=== PATIENT | male | born 1955 | race African-American/Black ===

== ENCOUNTER 2017-01-17 10:54 | Inpatient (IN) ==
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
[2017-01-17 12:06] LABS: Basophils % 0.1 % (0.0-0.8); Hematocrit 36.5 VOL% (42.0-52.0); Hemoglobin 10.9 GM/DL (14.0-18.0); Immature Granulocytes % 0.7 %; Immature Granulocytes Absolute 0.11 #; Lymphocytes # 1.3 10*3/uL (1.4-4.0); Lymphocytes % 8.6 % (21.2-54.2); Mean Corpuscular HGB Conc 29.9 GM/DL (32-36); Mean Corpuscular Hemoglobin 26 PG (27-34); Mean Corpuscular Volume 87.3 FL (87-102); Mean Platelet Volume 11.5 FL (9.6-12.0); Monocytes # 1.7 10*3/uL (0.11-0.8); Monocytes % 11.6 % (1.7-12.7); NRBC # 0.07 10*3/uL; Neutrophils # 11.6 10*3/uL (1.4-7.4); Platelet Count 387 T/CUMM (130-400); Red Blood Count 4.18 MC/CUMM (3.8-5.5); Red Cell Distribution Width 20.4 % (9.3-17.3); White Blood Count 14.7 T/CUMM (4-12)
--- NOTE | 2017-01-17 12:09 | XRay Report ---
XR chest 2V Indication: Shortness of breath Comparison: 04 June 2016 Findings: The heart and mediastinum are normal in size and configuration. The pulmonary vascularity is normal in caliber. There is increased left lung density and large effusion, not present on previous study. No other lung infiltrates, effusions, pneumothorax or other abnormality is demonstrated. Impression: Increased left lung density and effusion, likely underlying pneumonia. PROCEDURE INTERPRETED AT [facility] DEPARTMENT OF RADIOLOGY Final Report Signed by: Dr. Kevyn Lanza
[2017-01-17 12:48] LABS: Albumin 2.9 G/DL (3.4-5.0); Bilirubin,Total 0.6 MG/DL (0.2-1.0); Calcium 9.5 MG/DL (8.5-10.1); Osmolality,Calculated 292.3 MOS/KG (273-304); Total Protein 8.6 G/DL (6.4-8.3); Troponin I Only 0.041 NG/ML (0.00-0.045)
[2017-01-17 12:56] LABS: INR 1.1
[2017-01-17] MEDS ORDERED: ZALEPLON 5 MG CAPSULE PO PRN (14:49)
[2017-01-17] MEDS ORDERED: GLUCAGON 1 MG VIAL IM PRN (14:49)
[2017-01-17] MEDS ORDERED: DOCUSATE SODIUM 100 MG CAPSULE PO PRN (14:49)
[2017-01-17] MEDS ORDERED: DEXTROSE 50% 25 GM/50 ML VIAL IV PRN (14:49)
[2017-01-17] MEDS ORDERED: ACETAMINOPHEN 325 MG TABLET PO PRN (14:49)
[2017-01-17] MEDS ORDERED: ONDANSETRON 4 MG/2 ML VIAL IV PRN (14:49)
--- NOTE | 2017-01-17 15:08 | XRay Report ---
Exam: XR chest post procedure Date: 01/17/2017 at 2:15 PM Indication: Post thoracentesis Comparison: 01/13/2017 1143 a.m. Technical: Inspiration and expiration imaging obtained. Findings: Examination reveals complete opacification of the left upper chest that suggest the possibility of a mass. Atelectatic change present in the left base with residual left pleural effusion. Old right rib fractures present. The right heart border is intact the left heart border is obscured. Oxygen tubing is present. Impression: 1. Moderate residual left basilar effusion and atelectatic change with opacity in the left upper chest that appears represent possibly a mass in the left upper chest. 2. Old right rib fractures. CT scan of the chest is recommended for further evaluation. PROCEDURE INTERPRETED AT [facility] DEPARTMENT OF RADIOLOGY Final Report Signed by: Dr. Eleno Casarez
[2017-01-17 15:13] LABS: Lymphocytes,Pleural Fluid 89 %; Monocytes,Pleural Fluid 1 %; Neutrophils,Pleural Fluid 10 %
[2017-01-17 15:17] LABS: RBC,Pleural Fluid 1422 T/CUMM
--- NOTE | 2017-01-17 15:26 | EKG Report ---
Stationary ECG Study [facility] ER Test Date: 01/17/2017 10:58:51 AM Pat Name: JESUS MANUEL FOSTER Department: Room: 544 Gender: M [employer] Administrator: : [id number] Requested by: Steve Montenegro Order Number: [id number] Reading MD: CHAYO MEI Intervals [place] Rate: 107 P: 53 [place]: 104 QRS: 56 QRSD: 92 T: 124 QT: 342 QTc: 405 Interpretive Statements SINUS TACHYCARDIA WITH SHORT [place] INTERVAL POSSIBLE LEFT ATRIAL ENLARGEMENT POSSIBLE LEFT VENTRICULAR HYPERTROPHY Electronically Signed On 01-17-17 16:37:08 ELECTROPLATING SALES REPRESENTATIVE by CHAYO MEI [email or web address]
--- NOTE | 2017-01-17 15:58 | CT Report ---
Exam:CT chest w con Date:01/17/2017 3:04 PM Indication: Left pleural effusion pneumonia weight loss Comparison: Routine chest Technical: Images were obtained from the thoracic inlet through the lung bases with 80 cc of contrast. Axial sagittal and coronal imaging was available for review. Dose reduction was performed with decreasing kv and mA and automated exposure Total DLP: 148.4 mGy*cm Findings: The thyroid gland is mildly inhomogeneous. The trachea is slightly deviated to the right and esophagus is unremarkable. The examination reveals a large bulky mass in the lateral aortic carlos manuel chain measuring approximately 11.0 x 7 cm with extension into the aortopulmonic window where the mass measures up to 10 cm x 7.8 cm. Small nodes are present in the carinal region. The heart is demonstrated with enlargement and a pericardial effusion measuring up to 2.2 cm. ASVD is present in the aorta. The pulmonary outflow tract is intact the right pulmonary artery is unremarkable. The left pulmonary artery is encased in soft tissue density mass. The lungs reveal a large left pleural effusion and the mass density with underlying atelectatic change in the left chest. Mass lesion measures 37.7 cm extending to the left apex laterally with the mediastinal masses anteriorly and medially noted. Right lung is unremarkable. The bony structures are unremarkable. The adrenal glands are demonstrated with 3.8 x 2.7 x 2.0 cm mass in the right adrenal gland. The left adrenal gland is unremarkable.. The liver and spleen and stomach are unremarkable. The proximal kidneys appear intact. The gallbladder is demonstrated with small stone. The pancreas is unremarkable. Some low density present in the para-aortic region that suggest probable component of adenopathy in the para-aortic region. Impression: 1. Large pericardial effusion 2. Large residual pleural effusion postthoracentesis without pneumothorax 3. Large mass in the anterior mediastinum and left aortopulmonic window and left lung consistent with primary lung carcinoma. 4. Vascular calcinosis the aorta vessels coronary arteries and the mesenteric and renal arteries. 5. Metastatic disease in the right adrenal gland suspected measuring approximately 2.7 x 2 cm x 3.8 cm in height Critical test report called to Valentina Newby M.D. PROCEDURE INTERPRETED AT [facility] [place] DEPARTMENT OF RADIOLOGY Final Report Signed by: Dr. Eleno Casarez
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
--- NOTE | 2017-01-17 16:16 | XRay Report ---
Referring Physician: Steve Loza Exam: XR chest 1V Date: January 17, 2017 at 3:23 PM Reason: Pneumothorax Comparison: Chest postprocedure film January 17, 2017 at 1:47 PM, CT chest January 17, 2017 Findings: The heart is likely stable in size but is partially obscured. There is almost complete opacification of the left lung secondary to atelectasis, pleural fluid and a large mass at the left mediastinum/hilum. Superimposed pneumonia is not excluded. No pneumothorax is identified. The osseous structures appear stable. Multiple remote rib fractures are noted on the right. Impression: There has been no significant change. No pneumothorax is identified. PROCEDURE INTERPRETED AT [facility] DEPARTMENT OF RADIOLOGY Final Report Signed by: Dr. Kalli Magana
--- NOTE | 2017-01-17 16:34 | Post Interventional Procedure ---
Pre-op diagnosis: shortness of breath and large left pleural effusion Post-op diagnosis: same Procedure: u/s guided left thoracentesis Contrast: none Flouroscopy: none Radiologist: Liam Mckeon Anesthesia: local Specimens: other (specimen sent for any requested studies) Estimated blood loss: none Complications: none Condition: stable Description/Findings: Large left pleural effusion noted on chest ultrasound. The 6 Amharic safety centesis needle/catheter were advanced into the pleural fluid without difficulty using ultrasound guidance. A total of 1300 mL of serous straw- colored fluid was removed. Patient tolerated the procedure well and remained hemodynamically stable. Assessment and Plan - Time spent with patient Time spent with patient: Less than 30 minutes
--- NOTE | 2017-01-17 16:43 | Ultrasound Report ---
Exam: ULTRASOUND-GUIDED THORACENTESIS Clinical history: History of 20 pound weight loss shortness of breath, large right pleural effusion on radiography. Physician: Dr. Mckeon. Procedure: Informed consent was obtained prior to the procedure. A formal timeout was performed. Maximum sterile barrier technique was used. A partially loculated left-sided pleural effusion was identified with ultrasound. The left posterior chest was prepped and draped in sterile fashion. 1% lidocaine was used to anesthetize the skin and subcutaneous tissues. Under sonographic guidance, a 6 Guyanese safety centesis needle and catheter were advanced into the effusion using trocar technique. A captured sonographic image demonstrates positioning of the needle within the targeted pleural fluid. The needle was removed. Through the catheter, we obtained a total of 1300 cc of serous pleural fluid. The catheter was removed. A bandage was placed at the puncture site. The patient tolerated the procedure well. Chest radiograph is pending. Impression: Technically successful ultrasound guided left thoracentesis as detailed above. PROCEDURE INTERPRETED AT [facility] DEPARTMENT OF RADIOLOGY Final Report Signed by: Liam Mckeon
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
[2017-01-17] MEDS: LEVOFLOXACIN INJ 500 MG in PREMIX 1 EACH IV SCH (17:58)
[2017-01-17] MEDS: hydrALAZINE 25 MG TABLET PO SCH ×2 (17:59→20:38)
[2017-01-17] MEDS: SEVELAMER CARBONATE 800 MG TABLET PO SCH ×2 (17:59→20:38)
[2017-01-17] MEDS: CALCIUM ACETATE 667 MG CAPSULE PO SCH (17:59)
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
--- NOTE | 2017-01-17 20:32 | Ultrasound Report ---
Referring physician: Valentina Newby MD Exam: Bilateral lower extremity venous ultrasound Date: January 17, 2017 Comparison: Lower extremity venous ultrasound September 09, 2014 Reason: Leg pain, cancer of the lung, evaluate for DVT Technique: Duplex scan of the bilateral lower extremity veins was performed using B-Mode/grayscale imaging and Doppler spectral analysis, compression, color flow. Ultrasound images were captured and stored. Findings: There is no evidence of thrombus within the left or right common femoral veins, saphenous veins, superficial femoral veins or popliteal veins. Normal compression and augmentation are present throughout. Normal color flow and spectral analysis are observed. Impression: No evidence of deep venous thrombosis within either lower extremity. PROCEDURE INTERPRETED AT [facility], [place] DEPARTMENT OF RADIOLOGY Final Report Signed by: Dr. Kalli Magana
[2017-01-17] MEDS: PHENYTOIN ER 100 MG CAPSULE PO SCH (20:39)
[2017-01-17] MEDS: cloNIDine 0.1 MG TABLET PO SCH (20:39)
[2017-01-18 05:17] LABS: Basophils % 0.2 % (0.0-0.8); Eosinophils % 0.1 % (0.00-10.9); Hematocrit 31.2 VOL% (42.0-52.0); Hemoglobin 9.4 GM/DL (14.0-18.0); Immature Granulocytes % 0.7 %; Immature Granulocytes Absolute 0.12 #; Lymphocytes # 1.6 10*3/uL (1.4-4.0); Lymphocytes % 8.7 % (21.2-54.2); Mean Corpuscular HGB Conc 30.1 GM/DL (32-36); Mean Corpuscular Hemoglobin 26 PG (27-34); Mean Corpuscular Volume 86.2 FL (87-102); Mean Platelet Volume 12.1 FL (9.6-12.0); NRBC # 0.05 10*3/uL; Neutrophils # 14.1 10*3/uL (1.4-7.4); Neutrophils % 79.3 % (38.7-73.9); Platelet Count 281 T/CUMM (130-400); Red Blood Count 3.62 MC/CUMM (3.8-5.5); Red Cell Distribution Width 20.4 % (9.3-17.3); White Blood Count 17.7 T/CUMM (4-12)
[2017-01-18 05:44] LABS: Albumin 2.3 G/DL (3.4-5.0); Bilirubin,Total 0.5 MG/DL (0.2-1.0); Calcium 8.6 MG/DL (8.5-10.1); Osmolality,Calculated 290.7 MOS/KG (273-304); Total Protein 6.9 G/DL (6.4-8.3)
[2017-01-18] MEDS: MAGNESIUM CHLORIDE 64 MG TABLET PO SCH (08:51)
[2017-01-18] MEDS: CALCIUM ACETATE 667 MG CAPSULE PO SCH ×3 (08:51→17:50)
[2017-01-18] MEDS: SEVELAMER CARBONATE 800 MG TABLET PO SCH ×3 (08:51→17:50)
[2017-01-18] MEDS: ASPIRIN EC 81 MG TABLET PO SCH (08:52)
[2017-01-18] MEDS: cloNIDine 0.1 MG TABLET PO SCH ×2 (08:52→22:03)
[2017-01-18] MEDS: PHENYTOIN ER 100 MG CAPSULE PO SCH ×2 (08:52→22:00)
[2017-01-18] MEDS: hydrALAZINE 25 MG TABLET PO SCH ×3 (08:52→22:00)
[2017-01-18] MEDS: PANTOPRAZOLE 40 MG TABLET PO SCH (08:52)
[2017-01-18] MEDS: SIMVASTATIN 10 MG TABLET PO SCH (08:52)
[2017-01-18] MEDS ORDERED: amLODIPine 10 MG TABLET PO SCH (09:00)
--- NOTE | 2017-01-18 09:12 | Hospitalist Progress Note ---
Assessment and Plan (1) End stage renal disease on dialysis Status: Acute Assessment and plan: consult Nephrology for HD 01/18/17: he will have dialysis today Current Visit: Yes (2) Pleural effusion, left Status: Acute Assessment and plan: s/p thoracocentsis with still large residual fluid may need repeat removal and fluid sent to lab likely an exudate 01/18/17: He still has a large amount of fluid and no IR on this weekend. Current Visit: Yes (3) Mediastinal mass Status: Acute Assessment and plan: likely primary lung cancer with mets. Oncology consult Current Visit: Yes (4) Pericardial effusion Status: Acute Assessment and plan: cardiology has been consulted Current Visit: Yes (5) Hepatitis B Status: Chronic Current Visit: Yes Qualifiers: Viral hepatitis chronicity: chronic Hospitalist: Subjective Interval history: Pt states he did not rest well last night but denies any other issues. We were informed by his dialysis unit that he does have a history of Hepatitis B. Exam - Constitutional Vitals: Period Temp Pulse Resp BP Sys/Obando Pulse Ox Last 24 Hr 98 F-98.4 F 101-111 16-20 105-124/67-80 98-100 General appearance: cachectic - Head Head exam: Present: normocephalic, atraumatic - Eye Eye exam: Present: EOMI Pupils: Present: SHIVA - Respiratory Respiratory exam: Present: decreased breath sounds (LLL) - Cardiovascular Cardiovascular exam: Present: regular rate and rhythm - GI/Abdominal GI/Abdominal exam: Present: normal bowel sounds, soft - Extremities Exam Extremities exam: Present: full ROM - Neurological Exam Neurological exam: Present: alert, oriented X3, CN II-XII intact - Psychiatric Psychiatric exam: Present: normal affect, normal mood - Skin Skin exam: Present: warm, intact Results - Labs CBC & BMP: 01/18/17 04:50 01/18/17 04:50
--- NOTE | 2017-01-18 10:25 | Nephrology Progress Note ---
Nephrology - PN: Subj Interval history: Pt denies worsening SOB, Improved since thoracentesis. Aware of large left lung mass. Denies pain. Exam (PN)-Nephrology - Vital Signs Vital signs: Period Temp Pulse Resp BP Sys/Obando Pulse Ox Last 24 Hr 98 F-98.4 F 101-111 16-20 105-124/67-80 98-100 - General Appearance General appearance: well-developed, cachectic, chronically ill EENT: ATNC, PERRL, mucous membranes moist, hearing intact, vision intact Neck: no JVD, no thyromegaly Respiratory: no kyphosis, rales Cardiology: no murmurs, no rub, no edema Gastrointestinal: normoactive bowel sounds, no tenderness Integumentary: no rash, warm and dry Neurologic: no focal deficit, no asterixis, alert and oriented x3 Musculoskeletal: no deformities, no erythema - Lab 01/18/17 04:50 01/18/17 04:50 Most recent lab results Calcium 8.6 MG/DL (8.5-10.1) 01/18/17 04:50 Assessment and Plan (1) End stage renal disease on dialysis Problem details: Routine CHD today in his room due to HBV status. UF as tolerated by hemodynamics. Status: Acute Current Visit: Yes (2) Mediastinal mass Status: Acute Current Visit: Yes (3) Hepatitis B Status: Chronic Current Visit: Yes Qualifiers: Viral hepatitis chronicity: chronic
--- NOTE | 2017-01-18 11:18 | Pulmonology Progress Note ---
Pulmonary - PN: Subj Interval history: There is a 61-year-old black male. I saw him in pulmonary consultation on 2016. My impressions were. 1. Large left pleural effusion. Exudate. Probably related to #2. Cytologies are pending. 2. Large mass in the left upper lung and mediastinum. Thought to be lung cancer. Suspected adrenal gland metastasis 3. Pericardial effusion. Etiology undetermined. Consider malignancy. 2016. Echocardiogram and cardiology consult pending. 4. Chronic renal failure requiring dialysis. 5. See past history. 01/18/2017. Patient appears stable today. Echocardiogram pending cardiology consultation pending. Cytology pending. White blood cell count 17,773 6. Platelets 281,000. H&H 9.4/31.2. Electrolytes are normal. Creatinine 7.20. No positive cultures. Patient does not appear to be in distress. He is lying flat in bed without any apparent distress. Physical exam. Vital signs. See below General. No apparent distress lying nearly flat in bed. Chest. Mild large airway congestion. Decreased breath sounds on the left. I hear no stridor. Heart. Heart sounds are distant. I do not hear a rub Abdomen. Nondistended nontender. Neck. Symmetrical. No meningismus Lymphatics. No submandibular cervical supraclavicular adenopathy. Extremities no obvious evidence of deep venous thrombophlebitis. Note. Doppler venograms done 01/17/2017 showed no evidence of deep venous thrombophlebitis. The remainder the physical exam is negative Plan. 1. Check the remaining pleural fluid studies including cytology. 2. We will ask interventional radiology to try to remove additional fluid to help with the patient's breathing and to send for additional cytology 3. Cardiology consultation. #4 needs echocardiogram 5. Check serum amylase and lipase in light of elevated pleural fluid levels 6. Chest x-ray 01/19/2017 Exam (Progress Note) - Constitutional Vitals: Period Temp Pulse Resp BP Sys/Obando Pulse Ox Last 24 Hr 98 F-98.4 F 101-111 16-20 105-124/67-80 98-100 Results - Labs CBC & BMP: 01/18/17 04:50 01/18/17 04:50
--- NOTE | 2017-01-18 19:08 | ECHO Report ---
Eva Rodriguez 01/17/2017 Exam Date: 16:33 Referring Physician: Bette Obregon Technologist: SANFORD Age: 61 Ht (in): Wt (lb): MExam Location: [facility] Gender: Echo [id number]: Pericardial friction rub with effusIndications:ion, Left pleural effusion - s/p thoracentesis, End stage renal disease, Dyspnea, unspecified, Orthopnea, Essential (primary) hypertension, Mediastinal mass, IDDM BP: / HR: SinusRhythm: GoodTechnical Quality: IMPRESSIONS Low normal to mildly reduced LV systolic function with ejection fraction estimated at 40-50%. Grade 1/4 diastolic dysfunction. Moderate concentric left ventricular hypertrophy. Mild mitral and tricuspid regurgitation. Aortic sclerosis without stenosis. Moderate size pericardial effusion without evidence of A knot. A large left pleural effusion with consolidation is noted. MEASUREMENTS (Male / Female) Normal Values 2D ECHO LV Diastolic Diameter PLAX 3.9 cm 4.2 - 5.9 / 3.9 - 5.3 cm LV Systolic Diameter PLAX 3.3 cm LV Fractional Shortening PLAX 17.3 % IVS Diastolic Thickness 1.5 cm 0.6 - 1.0 / 0.6 - 0.9 cm LVPW Diastolic Thickness 1.5 cm 0.6 - 1.0 / 0.6 - 0.9 cm RV Internal Dim ED PLAX 2.3 cm Aortic Root Diameter 3.6 cm LA Systolic Diameter LX 3.9 cm 3.0 - 4.0 / 2.7 - 3.8 cm DOPPLER TR Peak Velocity 266.0 cm/s TR Peak Gradient 28.3 mmHg FINDINGS Left Ventricle Normal left ventricular cavity size. Moderate left ventricular hypertrophy. Left ventricular ejection fraction is estimated at 40-50 %. Right Ventricle The right ventricle is normal in size and function. Right Atrium The right atrium is normal in size. Left Atrium The left atrium is normal in size. Mitral Valve Mildly thickened mitral valve with mild mitral regurgitation. Aortic Valve Aortic valve sclerosis without stenosis or regurgitation. Tricuspid Valve Morphologically normal tricuspid valve. Mild tricuspid valve regurgitation. Tricuspid regurgitation velocities suggest a PAP of 38 mmHg. Pulmonic Valve Morphologically normal pulmonic valve without significant stenosis. There is no pulmonic regurgitation. Pericardium Circumferential moderate pericardial effusion without evidence of tamponade not. There is no transtricuspid or transmitral inflow respiratory variation, and there is no evidence of right-sided chamber collapse.. Left pleural effusion. Aorta Normal ascending aorta dimension. Lilly Dc MD (Electronically Signed) 18 January 2017 Final Date: 19:07
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
[2017-01-18] MEDS ORDERED: amLODIPine 5 MG TABLET PO SCH (21:39)
[2017-01-18] MEDS ORDERED: cloNIDine 0.1 MG TABLET PO PRN (21:39)
[2017-01-19 06:03] LABS: Basophils % 0.2 % (0.0-0.8); Eosinophils % 0.1 % (0.00-10.9); Hematocrit 29.7 VOL% (42.0-52.0); Immature Granulocytes % 0.9 %; Immature Granulocytes Absolute 0.15 #; Lymphocytes # 1.1 10*3/uL (1.4-4.0); Lymphocytes % 6.4 % (21.2-54.2); Mean Corpuscular HGB Conc 30.3 GM/DL (32-36); Mean Corpuscular Hemoglobin 26 PG (27-34); Mean Corpuscular Volume 85.6 FL (87-102); Mean Platelet Volume 11.4 FL (9.6-12.0); Monocytes # 1.7 10*3/uL (0.11-0.8); Monocytes % 9.8 % (1.7-12.7); NRBC # 0.05 10*3/uL; Neutrophils # 14.1 10*3/uL (1.4-7.4); Neutrophils % 82.6 % (38.7-73.9); Platelet Count 350 T/CUMM (130-400); Red Blood Count 3.47 MC/CUMM (3.8-5.5); Red Cell Distribution Width 19.7 % (9.3-17.3)
--- NOTE | 2017-01-19 08:45 | Hospitalist Progress Note ---
Assessment and Plan (1) End stage renal disease on dialysis Problem details: Routine CHD today in his room due to HBV status. UF as tolerated by hemodynamics. Status: Chronic Assessment and plan: consult Nephrology for HD 01/18/17: he will have dialysis today 01/19/17: He did well with dialysis on yesterday will resume his regular scheduled Current Visit: Yes (2) Pleural effusion, left Status: Acute Assessment and plan: s/p thoracocentsis with still large residual fluid may need repeat removal and fluid sent to lab likely an exudate 01/18/17: He still has a large amount of fluid and no IR on this weekend. 01/19/17: IR consult in the am Current Visit: Yes (3) Mediastinal mass Status: Acute Assessment and plan: likely primary lung cancer with mets. Oncology consult 01/19/17: cytology is still pending Current Visit: Yes (4) Pericardial effusion Status: Acute Assessment and plan: cardiology has been consulted 01/19/17: per cards just monitor as he isn't symptomatic Current Visit: Yes (5) Hepatitis B Status: Chronic Current Visit: Yes Qualifiers: Viral hepatitis chronicity: chronic Hospitalist: Subjective Interval history: 61 yo male who presented with Dyspnea and about a 20-30 lbs weight loss. He has both pericardial and pleural effusion and about 1300 cc of fluid removed from pleural on Friday. He has no complaints and he did tolerate dialysis on yesterday. Exam - Constitutional Vitals: Period Temp Pulse Resp BP Sys/Obando Pulse Ox Last 24 Hr 97.3 F-98.7 F 97-107 16-20 92-111/58-65 92-98 General appearance: cachectic - Head Head exam: Present: normocephalic, atraumatic - Eye Eye exam: Present: EOMI Pupils: Present: SHIVA - Respiratory Respiratory exam: Present: decreased breath sounds (left base) - Cardiovascular Cardiovascular exam: Present: regular rate and rhythm - GI/Abdominal GI/Abdominal exam: Present: normal bowel sounds, soft - Extremities Exam Extremities exam: Present: full ROM - Neurological Exam Neurological exam: Present: alert, oriented X3, CN II-XII intact - Psychiatric Psychiatric exam: Present: normal affect, normal mood - Skin Skin exam: Present: warm, intact Results - Labs CBC & BMP: 01/19/17 05:29 01/18/17 04:50 - Diagnostic Findings Procedure: Chest x-ray: image reviewed by me (trachea deviated to the right with large left pleural effusion)
--- NOTE | 2017-01-19 09:30 | XRay Report ---
Referring Physician: Eleno Lombardi Exam: XR chest 1V portable Date: January 19, 2017 at 7:07 AM Reason: Chest mass, pleural effusion Comparison: Chest one view portable and CT chest January 17, 2017 Findings: The heart is partially obscured but is likely stable in size. There is almost complete opacification of the left lung secondary to atelectasis, pleural fluid and a large mass at the left mediastinum/hilum. Superimposed pneumonia or additional neoplasm is not excluded. No pneumothorax is identified. The osseous structures appear stable. Impression: There has been no significant change. PROCEDURE INTERPRETED AT [facility] DEPARTMENT OF RADIOLOGY Final Report Signed by: Dr. Kalli Magana
[2017-01-19] MEDS: MAGNESIUM CHLORIDE 64 MG TABLET PO SCH (09:37)
[2017-01-19] MEDS: SEVELAMER CARBONATE 800 MG TABLET PO SCH ×3 (09:37→18:48)
[2017-01-19] MEDS: PHENYTOIN ER 100 MG CAPSULE PO SCH ×3 (09:38→21:52)
[2017-01-19] MEDS: PANTOPRAZOLE 40 MG TABLET PO SCH (09:38)
[2017-01-19] MEDS: CALCIUM ACETATE 667 MG CAPSULE PO SCH ×3 (09:38→18:48)
[2017-01-19] MEDS: SIMVASTATIN 10 MG TABLET PO SCH (09:38)
[2017-01-19] MEDS: ASPIRIN EC 81 MG TABLET PO SCH (11:23)
--- NOTE | 2017-01-19 13:31 | Nephrology Progress Note ---
Nephrology - PN: Subj Interval history: Pt denies SOB/pain. Tolerated CHD yesterday without complications. Exam (PN)-Nephrology - Vital Signs Vital signs: Period Temp Pulse Resp BP Sys/Obando Pulse Ox Last 24 Hr 97.3 F-98.7 F 97-107 18-20 92-111/58-65 92-98 - General Appearance General appearance: cachectic, chronically ill, frail EENT: ATNC, PERRL, mucous membranes dry, hearing intact, vision intact Neck: no JVD, no carotid bruit Respiratory: no kyphosis, rales Cardiology: no murmurs, no rub, no edema Gastrointestinal: normoactive bowel sounds, no tenderness Integumentary: no rash, warm and dry Neurologic: no focal deficit, no asterixis Musculoskeletal: no deformities, no erythema - Lab 01/19/17 05:29 01/18/17 04:50 Most recent lab results Calcium 8.6 MG/DL (8.5-10.1) 01/18/17 04:50 Assessment and Plan (1) End stage renal disease on dialysis Problem details: Routine CHD tomorrow in his room due to HBV status. UF as tolerated by hemodynamics. Status: Chronic Current Visit: Yes (2) Mediastinal mass Status: Acute Current Visit: Yes (3) Hepatitis B Status: Chronic Current Visit: Yes Qualifiers: Viral hepatitis chronicity: chronic
[2017-01-19] MEDS: hydrALAZINE 25 MG TABLET PO SCH ×2 (13:38→16:09)
--- NOTE | 2017-01-19 14:11 | Pulmonology Progress Note ---
Pulmonary - PN: Subj Interval history: There is a 61-year-old black male. I saw him in pulmonary consultation on 2016. My impressions were. 1. Large left pleural effusion. Exudate. Probably related to #2. Cytologies are pending. 2. Large mass in the left upper lung and mediastinum. Thought to be lung cancer. Suspected adrenal gland metastasis 3. Pericardial effusion. Etiology undetermined. Consider malignancy. 2016. Echocardiogram and cardiology consult pending. 4. Chronic renal failure requiring dialysis. 5. See past history. 01/18/2017. Patient appears stable today. Echocardiogram pending cardiology consultation pending. Cytology pending. White blood cell count 17,773 6. Platelets 281,000. H&H 9.4/31.2. Electrolytes are normal. Creatinine 7.20. No positive cultures. Patient does not appear to be in distress. He is lying flat in bed without any apparent distress. 01/19/2017. This patient still has some left sided pleural effusion and he has a huge mass-effect over the left upper lung. I have asked interventional radiologist for another thoracentesis to remove additional fluid and for additional cytology. I canceled that today. I cancel because of patient just lays in bed and is asleep in a hard to arouse. His says this is the way he is at home for the past few months. I am not sure how much workup this patient can take. Cytologies from the first thoracentesis are pending. White count is 17,000 with 83 segs. H&H is 9.0/29.7. Platelets 350,000. Glucose 201. Physical exam. Vital signs. See below General. No apparent distress lying curled up in bed. Hard to arouse Chest. Mild large airway congestion. Decreased breath sounds on the left. I hear no stridor. Heart. Heart sounds are distant. I do not hear a rub Abdomen. Nondistended nontender. Neck. Symmetrical. No meningismus Lymphatics. No submandibular cervical supraclavicular adenopathy. Extremities no obvious evidence of deep venous thrombophlebitis. Note. Doppler venograms done 01/17/2017 showed no evidence of deep venous thrombophlebitis. The remainder the physical exam is negative Plan. 1. Check the remaining pleural fluid studies including cytology. 2. We will ask interventional radiology to try to remove additional fluid to help with the patient's breathing and to send for additional cytology 3. Cardiology consultation. #4 needs echocardiogram 5. Check serum amylase and lipase in light of elevated pleural fluid levels 6. Chest x-ray 01/19/2017 7. 01/19/2017. See my note above. Note that this patient has a lipase of [id number]. Exam (Progress Note) - Constitutional Vitals: Period Temp Pulse Resp BP Sys/Obando Pulse Ox Last 24 Hr 97.3 F-98.7 F 97-107 18-20 92-111/58-65 92-98 Results - Labs CBC & BMP: 01/19/17 05:29 01/18/17 04:50
--- NOTE | 2017-01-19 16:31 | Cardiology Progress Note ---
Assessment and Plan (1) Pericardial effusion Status: Acute Assessment and plan: This could be secondary to malignancy and/or his end-stage renal disease. No tamponade physiology was observed on echo on Friday, however his blood pressures on the lower side. I'm going to stop his antihypertensive medications. We will reevaluate his effusion. Current Visit: Yes (2) Hypertension Status: Chronic Assessment and plan: At this point I'm going to stop his antihypertensive medications because of the effusion. Current Visit: Yes (3) Dyspnea Status: Acute Assessment and plan: This is multifactorial from his abnormal lung findings, pleural effusion and pericardial effusion. Current Visit: Yes (4) End stage renal disease on dialysis Problem details: Routine CHD tomorrow in his room due to HBV status. UF as tolerated by hemodynamics. Status: Chronic Current Visit: Yes (5) Pleural effusion, left Status: Acute Assessment and plan: This is being evaluated by pulmonary. He is status post thoracentesis with a large residual. Current Visit: Yes (6) Mediastinal mass Status: Acute Assessment and plan: Being evaluated by pulmonary. Current Visit: Yes (7) Hepatitis B Status: Chronic Current Visit: Yes Qualifiers: Viral hepatitis chronicity: chronic Cardiology - PN: Subj Interval history: Mr. Rodriguez is a 61 year old male with a history of end-stage renal disease on hemodialysis, hypertension, hyperlipidemia, diabetes mellitus. He was admitted to the hospital with shortness of breath, orthopnea. He was found to have a large pleural effusion, a moderate-sized pericardial effusion and an abnormal chest CT concerning for possible malignancy. Overall, he thinks that shortness of breath may be worsening today when compared to yesterday although he is unclear about this. His blood pressure is on the low side even prior to receiving any of his medications. There are multiple family members present, they have designated 1 particular aunt as one that would be knowledgeable about his medications. I'll try to clarify with the patient and his family member whether or not he was actually taking his medications at home prior to admission, but nobody seems to be able to verify this. He is not having chest pain. Exam (Progress Note) - Constitutional Vitals: Period Temp Pulse Resp BP Sys/Obando Pulse Ox Last 24 Hr 98.1 F-98.7 F 105-107 18-20 92-111/58-65 92-97 Exam: General appearance: Cachectic, no acute distress - Head Head exam: Present: Some temporal wasting, normocephalic, atraumatic. Absent: hematoma, laceration - Eye Eye exam: Present: EOMI. Absent: conjunctival injection, nystagmus, periorbital swelling, scleral icterus, laceration to eyelids Pupils: Absent: constricted, dilated, fixed, irregular, unequal - ENT ENT exam: Present: normal exam, normal external ear exam - Neck Neck exam: Present: normal inspection. Absent: lymphadenopathy, meningismus, tenderness, thyromegaly - Respiratory Respiratory exam: Present: Decreased breath sounds in the bilateral bases with mild crackles above the decreased breath sounds. Absent: accessory muscle use, chest wall tenderness - Cardiovascular Cardiovascular exam: Present: Tachycardic rate and regular rhythm, friction rub is auscultated on both sides of the chest. - GI/Abdominal GI/Abdominal exam: Present: normal bowel sounds, soft. Absent: distended, firm , guarding, hernia, mass, tenderness, rebound. - Extremities Exam Extremities exam: Present: Decreased pulses in the bilateral lower extremities, dialysis access and left upper extremity. Absent: calf tenderness, edema - Back Exam Back exam: Present: normal inspection. Absent: muscle spasm, vertebral tenderness - Neurological Exam Neurological exam: Present: alert, oriented X3, grossly intact without resting or intention tremor - Psychiatric Psychiatric exam: Present: Depressed affect and mood, somewhat despondent - Skin Skin exam: Present: normal color, warm, dry, intact. Absent: cyanosis, diaphoretic, rash, urticaria Result/EKG - Labs CBC & BMP: 01/19/17 05:29 01/18/17 04:50 Lab Results: I have reviewed the past 24 hour labs Labs: Laboratory Results - last 24 hr 01/18/17 01/18/17 01/19/17 15:37 19:17 05:29 WBC 17.0 H RBC 3.47 L Hgb 9.0 L Hct 29.7 L MCV 85.6 L MCH 26 L MCHC 30.3 L RDW 19.7 H Plt Count 350 D MPV 11.4 Neut % (Auto) 82.6 H Lymph % (Auto) 6.4 L Banner % (Auto) 9.8 Eos % (Auto) 0.1 Baso % (Auto) 0.2 Neut # (Auto) 14.1 H Lymph # (Auto) 1.1 L Banner # (Auto) 1.7 H Eos # (Auto) 0.0 Baso # (Auto) 0.0 Immature Gran % 0.9 Nucleated RBC % 0.3 Immature Gran # 0.15 Nucleated RBCs # 0.05 POC Glucose 219 H 214 H 01/19/17 01/19/17 06:32 12:19 WBC RBC Hgb Hct MCV MCH MCHC RDW Plt Count MPV Neut % (Auto) Lymph % (Auto) [place]anner % (Auto) Eos % (Auto) Baso % (Auto) Neut # (Auto) Lymph # (Auto) Banner # (Auto) Eos # (Auto) Baso # (Auto) Immature Gran % Nucleated RBC % Immature Gran # Nucleated RBCs # POC Glucose 216 H 201 H
[2017-01-19] MEDS: LEVOFLOXACIN INJ 500 MG in PREMIX 1 EACH IV SCH (18:49)
[2017-01-20 06:20] LABS: Basophils % 0.1 % (0.0-0.8); Hematocrit 31.3 VOL% (42.0-52.0); Hemoglobin 9.5 GM/DL (14.0-18.0); Immature Granulocytes % 2.4 %; Immature Granulocytes Absolute 0.64 #; Lymphocytes # 1.1 10*3/uL (1.4-4.0); Lymphocytes % 4.1 % (21.2-54.2); Mean Corpuscular HGB Conc 30.4 GM/DL (32-36); Mean Corpuscular Hemoglobin 26 PG (27-34); Mean Corpuscular Volume 85.3 FL (87-102); Mean Platelet Volume 10.8 FL (9.6-12.0); Monocytes % 7.4 % (1.7-12.7); NRBC # 0.07 10*3/uL; Neutrophils # 22.8 10*3/uL (1.4-7.4); Platelet Count 371 T/CUMM (130-400); Red Blood Count 3.67 MC/CUMM (3.8-5.5); Red Cell Distribution Width 19.9 % (9.3-17.3); White Blood Count 26.5 T/CUMM (4-12)
[2017-01-20 06:49] LABS: Lymphocytes 3 % (20-55); Segmented Neutrophils 86 % (50-85); Total Cells Counted 100
[2017-01-20 06:50] LABS: Burr Cells 1+; Macrocytosis 1+; Platelet Estimate Adequate; Polychromasia Slight; Target Cells Slight
[2017-01-20 06:51] LABS: Calcium 9.6 MG/DL (8.5-10.1)
[2017-01-20 06:52] LABS: Magnesium 3.1 MG/DL (1.8-2.4); Osmolality,Calculated 290.7 MOS/KG (273-304); Potassium 3.9 MMOL/L (3.5-5.1)
--- NOTE | 2017-01-20 08:07 | Cardiology Progress Note ---
Assessment and Plan - Time spent with patient Time spent with patient: Less than 30 minutes (1) End stage renal disease on dialysis Status: Chronic Current Visit: Yes (2) Pericardial effusion Status: Acute Assessment and plan: Repeat echo today. Current Visit: Yes (3) Hepatitis B Status: Chronic Current Visit: Yes Qualifiers: Viral hepatitis chronicity: chronic (4) Hypertension Status: Chronic Current Visit: Yes Cardiology - PN: Subj Interval history: Mr. Rodriguez is a very pleasant 58-year-old gentleman with extensive weight loss bilateral pleural effusions abnormal imaging of the chest and pericardial effusion that is moderate. I reviewed his transthoracic echocardiogram. He is also lost his voice. He quit smoking upon admission to the hospital. Cardiology is following first pericardial effusion. Cytology on his exudative pleural effusion is pending certainly seems to be of malignancy. Because of his persistent mild tachycardia repeat transthoracic echo is pending. His last effusion was moderate and had no echocardiographic finding suggesting of impending tamponade. Exam (Progress Note) - Constitutional Vitals: Period Temp Pulse Resp BP Sys/Obando Pulse Ox Last 24 Hr 98.0 F-100.0 F 99-128 14-20 103-124/62-75 97-100 General appearance: under weight (Cachectic appearing) - Respiratory Respiratory exam: Present: other (Markedly diminished breath sounds in both bases with dullness to percussion) - Cardiovascular Cardiovascular exam: Present: regular rate and rhythm (Rates about 90) - GI/Abdominal GI/Abdominal exam: Present: normal bowel sounds Result/EKG - Labs CBC & BMP: 01/20/17 06:04 01/20/17 06:04 Labs: Laboratory Results - last 24 hr 01/19/17 01/19/17 01/19/17 12:19 16:17 21:39 WBC RBC Hgb Hct MCV MCH MCHC RDW Plt Count MPV Neut % (Auto) Lymph % (Auto) Summers % (Auto) Eos % (Auto) Baso % (Auto) Neut # (Auto) Lymph # (Auto) Summers # (Auto) Eos # (Auto) Baso # (Auto) Total Counted Immature Gran % Nucleated RBC % Immature Gran # Segmented Neutrophils Lymphocytes Monocytes Nucleated RBCs # Platelet Estimate Polychromasia Macrocytosis Target Cells [place] Cells Sodium Potassium Chloride Carbon Dioxide Anion Gap BUN Creatinine GFR Calculation BUN/Creatinine Ratio Glucose POC Glucose 201 H 198 H 150 H Calculated Osmolality Calcium Magnesium 01/20/17 01/20/17 06:04 06:04 WBC 26.5 H D RBC 3.67 L Hgb 9.5 L Hct 31.3 L MCV 85.3 L MCH 26 L MCHC 30.4 L RDW 19.9 H Plt Count 371 MPV 10.8 Neut % (Auto) 86.0 H Lymph % (Auto) 4.1 L Summers % (Auto) 7.4 Eos % (Auto) 0.0 Baso % (Auto) 0.1 Neut # (Auto) 22.8 H Lymph # (Auto) 1.1 L Summers # (Auto) 2.0 H Eos # (Auto) 0.0 Baso # (Auto) 0.0 Total Counted 100 Immature Gran % 2.4 Nucleated RBC % 0.3 Immature Gran # 0.64 Segmented Neutrophils 86 H Lymphocytes 3 L Monocytes 11 Nucleated RBCs # 0.07 Platelet Estimate Adequate Polychromasia Slight Macrocytosis 1+ Target Cells Slight [place] Cells 1+ Sodium 138 Potassium 3.9 Chloride 98 Carbon Dioxide 26 Anion Gap 17.9 H BUN 49 H Creatinine 7.90 H GFR Calculation 7 BUN/Creatinine Ratio 6.00 Glucose 145 H POC Glucose Calculated Osmolality 290.7 Calcium 9.6 Magnesium 3.1 H
[2017-01-20] MEDS: SEVELAMER CARBONATE 800 MG TABLET PO SCH ×3 (09:04→18:29)
[2017-01-20] MEDS: SIMVASTATIN 10 MG TABLET PO SCH (09:04)
[2017-01-20] MEDS: PANTOPRAZOLE 40 MG TABLET PO SCH (09:04)
[2017-01-20] MEDS: CALCIUM ACETATE 667 MG CAPSULE PO SCH ×3 (09:04→18:29)
[2017-01-20] MEDS: ASPIRIN EC 81 MG TABLET PO SCH (09:04)
[2017-01-20] MEDS: MAGNESIUM CHLORIDE 64 MG TABLET PO SCH (09:04)
[2017-01-20] MEDS: PHENYTOIN ER 100 MG CAPSULE PO SCH ×2 (09:05→20:01)
--- NOTE | 2017-01-20 10:44 | Hospitalist Progress Note ---
Assessment and Plan (1) Dyspnea Status: Acute Assessment and plan: Related to pleural effusion and mediastinum mass. Current Visit: Yes Qualifiers: Dyspnea type: shortness of breath Qualified Code(s): R06.02 - Shortness of breath (2) End stage renal disease on dialysis Problem details: Routine CHD tomorrow in his room due to HBV status. UF as tolerated by hemodynamics. Status: Chronic Current Visit: Yes (3) Pleural effusion, left Status: Acute Assessment and plan: Cytology pending. Likely malignant. Current Visit: Yes (4) Mediastinal mass Status: Acute Current Visit: Yes (5) Pericardial effusion Status: Acute Assessment and plan: Without tamponade Current Visit: Yes Hospitalist: Subjective Interval history: 61-year-old -Burm[place] male with end-stage renal disease on dialysis admitted with lung mass and pleural effusions with pericardial effusion without tamponade. He has undergone thoracentesis and fluid cytology is pending. This is thought to be a malignancy related effusion related to his lung mass. The patient is quite debilitated and frail. He is in no distress this morning. He is laying flat in bed and appears comfortable. Long-term plan for this patient is questionable. I think he would benefit most from hospice and palliative care given his degree of debility and other chronic comorbidities including end-stage renal disease. Exam - Constitutional Vitals: Period Temp Pulse Resp BP Sys/Obando Pulse Ox Last 24 Hr 97.6 F-100.0 F 99-128 14-20 103-124/56-75 97-100 General appearance: no acute distress, under weight, cachectic - Head Head exam: Present: normal inspection - Eye Eye exam: Present: EOMI Pupils: Present: SHIVA - Respiratory Respiratory exam: Present: decreased breath sounds - Cardiovascular Cardiovascular exam: Present: tachycardia - GI/Abdominal GI/Abdominal exam: Present: normal bowel sounds, soft - Extremities Exam Extremities exam: Absent: edema - Neurological Exam Neurological exam: Present: alert, oriented X3 - Psychiatric Psychiatric exam: Present: flat affect - Skin Skin exam: Present: normal color, warm, dry Results - Labs CBC & BMP: 01/20/17 06:04 01/20/17 06:04 Lab Results: I have reviewed the past 24 hour labs
--- NOTE | 2017-01-20 11:05 | Pulmonology Progress Note ---
Pulmonary - PN: Subj Interval history: Brian Whittaker, ANP-BC, GNP-BC, acting as scribe for Dr. Eleno Lombardi Mr. Rodriguez was seen today along with Mouna Atkinson RN, and a 14 year old male family member. There is a 61-year-old black male. He was first seen in pulmonary consultation on 01/17/2017. At that time, our impressions were: 1. Large left pleural effusion. Exudate. Probably related to #2. Cytologies are pending. 2. Large mass in the left upper lung and mediastinum. Thought to be lung cancer. Suspected adrenal gland metastasis 3. Pericardial effusion. Etiology undetermined. Consider malignancy. 2016. Echocardiogram and cardiology consult pending. 4. Chronic renal failure requiring dialysis. 5. See past history. 01/18/2017. Patient appears stable today. Echocardiogram pending cardiology consultation pending. Cytology pending. White blood cell count 17,773 6. Platelets 281,000. H&H 9.4/31.2. Electrolytes are normal. Creatinine 7.20. No positive cultures. Patient does not appear to be in distress. He is lying flat in bed without any apparent distress. 01/19/2017. This patient still has some left sided pleural effusion and he has a huge mass-effect over the left upper lung. I have asked interventional radiologist for another thoracentesis to remove additional fluid and for additional cytology. I canceled that today. I cancel because of patient just lays in bed and is asleep in a hard to arouse. His says this is the way he is at home for the past few months. I am not sure how much workup this patient can take. Cytologies from the first thoracentesis are pending. White count is 17,000 with 83 segs. H&H is 9.0/29.7. Platelets 350,000. Glucose 201. 01/20/17. Patient's pleural fluid cytology is still pending. He is laying flat in bed and appears comfortable. His breathing is stable. The chest x-ray has been done today, so one has been ordered. Pleural fluid from thoracentesis has grown no organisms. White count has risen to 26,500 and at midnight he had a temperature 100.0. Will obtain blood cultures 3 sets 30 minutes apart; sputum for Gram stain, culture, and sensitivity; and start Cleocin 300 mg IV every 8 hours. Medications have been reviewed. Labs been reviewed. White count is 26,500 with 86.0% segs, 4.1% lymphs, and 7.4 % monos; H&H 9.5/31.3 with decreased indices and increased red blood cell distribution width; platelet count 371,000; creatinine has risen to 7.90, BUN 49 , electrolytes are normal with the exception of an elevated magnesium of 3.1 Exam (Progress Note) - Constitutional Vitals: Period Temp Pulse Resp BP Sys/Obando Pulse Ox Last 24 Hr 97.6 F-100.0 F 99-128 14-20 103-124/56-75 97-100 Exam: Chest with mild large airway congestion and decreased breath sounds on the left Heart sounds are distant Abdomen is nontender and nondistended Extremities with nothing to suggest acute deep venous thrombophlebitis Neurologic/psychiatric the patient is awake alert Plan: Follow-up the pleural fluid cytology when available. Continue present treatment. Will obtain another CXR today since one was not done. He is being followed by cardiology and nephrology. Results - Labs CBC & BMP: 01/20/17 06:04 01/20/17 06:04
--- NOTE | 2017-01-20 11:58 | XRay Report ---
Portable chest Date: 01/20/2016 Clinical history: Shortness of breath, lung mass Comparison: 01/19/2017 Technique: Portable AP sitting chest Findings: Stable cardiomegaly. Progressive pleural and parenchymal findings in the left hemithorax with shift of the mediastinum to the right. No significant change in the appearance of the right lung. No acute osseous findings. Impression: Only limited pneumatization of the left lung with progressive findings in the left hemithorax. Patient has known large left chest mass with enlarging pleural effusion and shift of the mediastinum to the right. PROCEDURE INTERPRETED AT [facility] DEPARTMENT OF RADIOLOGY Final Report Signed by: Dr. Twila Salinas
[2017-01-20] MEDS: CLINDAMYCIN INJ 300 MG in PREMIX 1 EACH IV SCH ×2 (12:01→20:02)
--- NOTE | 2017-01-20 17:22 | ECHO Report ---
Eva Rodriguez Exam Date: 01/20/2017 09:03 Referring Physician: Technologist: Foster KRUSE Age: 61 Ht (in): Wt (lb): Gender: M Exam Location: [facility] Echo Indications: re-eval pericardial effusion BP: / HR: Rhythm: Sinus Technical Quality: limited IMPRESSIONS There is a large to moderate pericardial effusion with significant amount of fibrinous stranding within the pericardium. It is located circumferentially around the ventricular myocardium. The effusion is slightly larger today compared to previously. There is no tricuspid or mitral inflow examination of this effusion. There is only limited 2D imaging. There is no collapse of the right atrium or ventricle. The pericardial effusion measures 2.35 cm at its largest point. MEASUREMENTS (Male / Female) Normal Values FINDINGS Left Ventricle Right Ventricle Right Atrium Left Atrium Mitral Valve Aortic Valve Tricuspid Valve Pulmonic Valve Pericardium Aorta Eda Flynn (Electronically Signed) Final Date: 20 January 2017 17:21
--- NOTE | 2017-01-20 21:02 | Nephrology Progress Note ---
Nephrology - PN: Subj Interval history: He continues to be weak. He is easily arousable and is responsive. However he has having difficulty talking today. He denies shortness of breath or pain. Exam (PN)-Nephrology - Vital Signs Vital signs: Period Temp Pulse Resp BP Sys/Obando Pulse Ox Last 24 Hr 97.4 F-100.0 F 99-128 14-19 106-123/56-72 97-100 Exam: Gen.: Alert and oriented x3. ENT: Pupils equal round reactive to light. EOMs intact. Mucous membranes moist. Neck: Supple. No JVD or bruit. Cardiovascular: Regular rate and rhythm. No rub Lungs: Clear on the right. Dullness left base Abdomen: Soft. Nontender. Positive bowel sounds. No organomegaly Extremities: No edema - Lab 01/20/17 06:04 01/20/17 06:04 Most recent lab results Calcium 9.6 MG/DL (8.5-10.1) 01/20/17 06:04 Magnesium 3.1 MG/DL (1.8-2.4) H 01/20/17 06:04 Assessment and Plan (1) End stage renal disease on dialysis Status: Chronic Assessment and plan: 61-year-old man admitted with: * Left pleural effusion. Status post thoracentesis. He is symptomatically improved. * Mediastinal mass. Probable lung cancer. I have discussed this with him in detail. He is interested in speaking to oncology to discuss options. * ESRD. Dialysis tomorrow. We will need to monitor for hypotension, given his pericardial effusion * Diabetes mellitus * Cerebrovascular disease * Seizure disorder Current Visit: Yes (2) Pericardial friction rub Status: Acute Current Visit: Yes (3) Pleural effusion, left Status: Acute Current Visit: Yes (4) Mediastinal mass Status: Acute Current Visit: Yes
[2017-01-21] MEDS ORDERED: diphenhydrAMINE CAP 25 MG CAPSULE PO PRN (00:03)
[2017-01-21] MEDS ORDERED: diphenhydrAMINE 25 MG/10 ML UDCUP PO PRN (00:06)
[2017-01-21] MEDS: CLINDAMYCIN INJ 300 MG in PREMIX 1 EACH IV SCH ×3 (02:59→18:30)
[2017-01-21] MEDS: SEVELAMER CARBONATE 800 MG TABLET PO SCH ×3 (08:13→17:24)
[2017-01-21] MEDS: PANTOPRAZOLE 40 MG TABLET PO SCH (08:13)
[2017-01-21] MEDS: ASPIRIN EC 81 MG TABLET PO SCH (08:13)
[2017-01-21] MEDS: CALCIUM ACETATE 667 MG CAPSULE PO SCH ×3 (08:13→17:24)
[2017-01-21] MEDS: SIMVASTATIN 10 MG TABLET PO SCH (08:14)
[2017-01-21] MEDS: MAGNESIUM CHLORIDE 64 MG TABLET PO SCH (08:14)
[2017-01-21] MEDS: PHENYTOIN ER 100 MG CAPSULE PO SCH ×2 (08:14→20:02)
--- NOTE | 2017-01-21 09:52 | Cardiology Progress Note ---
ICira April RN, am scribing for, and in the presence of, Eda Flynn DO 09 :50. Assessment and Plan (1) Pericardial effusion Status: Chronic Assessment and plan: This appears to be a chronic process that has worsened certainly related to dialysis and his mediastinal/left chest mass. Await cytology. At this point I do not think it is in the patient's best interest to proceed with pericardiocentesis Current Visit: Yes (2) End stage renal disease on dialysis Status: Chronic Current Visit: Yes (3) Hepatitis B Status: Chronic Current Visit: Yes Qualifiers: Viral hepatitis chronicity: chronic (4) Hypertension Status: Chronic Current Visit: Yes (5) Chest mass Status: Acute Assessment and plan: Cytology is pending. This appears to be advanced stage malignancy and prognosis is very poor. No formal cytologic diagnosis has been given. Current Visit: Yes Cardiology - PN: Subj Interval history: Mr. Rodriguez is seen resting in bed in no acute distress. He tells me he didn' t have a good night, but can't tell me why. He denies chest pain or palpitations and says his breathing is OK. Oxygen in use via NBP. ECHO done yesterday showed large to moderate pericardial effusion that was slightly larger yesterday than on previous ECHO. According to vital sign records, he has a persistent low level tachycardia. Pressures were stable. He tells me he is scheduled to dialyze today. I discussed with Mr. Rodriguez today about his poor prognosis. He was on dialysis and somewhat somnolent. His pericardial effusion looks slightly worse yesterday by transthoracic echo. CT scan of course looks like a large left chest mass enters into the mediastinum. The patient's parent pulses paradoxus was measured today and was less than 10 mmHg it looks like it was about 5mmHg. His pressure is running low on dialysis with systolic between 85 by 90 mmHg. He has persistent tachycardia at about 100-105. Although a therapeutic pericardiocentesis could be considered I think in light of his extremely poor prognosis from this chest mass and his profound cachexia I do not think it is advisable. We are still waiting cytology to better define this mass that appears to be a malignancy. Exam (Progress Note) - Constitutional Vitals: Period Temp Pulse Resp BP Sys/Obando Pulse Ox Last 24 Hr 97.4 F-98.7 F 104-112 16-18 102-124/45-72 94-100 General appearance: no acute distress, under weight, other (Cachectic with obvious malnutrition) - Head Head exam: Absent: abrasion, hematoma - Eye Eye exam: Absent: periorbital swelling, laceration to eyelids - Neck Neck exam: Absent: tenderness - Respiratory Respiratory exam: Present: decreased breath sounds, other (oxygen via NBP). Absent: accessory muscle use, chest wall tenderness - Cardiovascular Cardiovascular exam: Present: regular rate and rhythm, tachycardia, other ( Tones are nicely audible there is no rub) - GI/Abdominal GI/Abdominal exam: Present: normal bowel sounds, soft. Absent: distended, tenderness - Extremities Exam Extremities exam: Absent: calf tenderness, edema - Neurological Exam Neurological exam: Present: alert, oriented X3 - Skin Skin exam: Present: warm, dry Result/EKG - Labs CBC & BMP: 01/20/17 06:04 01/20/17 06:04 Labs: Laboratory Results - last 24 hr 01/20/17 01/20/17 01/20/17 07:19 10:57 16:18 POC Glucose 155 H 184 H 204 H 01/20/17 19:57 POC Glucose 152 H I, Eda Flynn, , personally performed the services described in this documentation, ascribed by Rama Denis RN in my presence, and it is both accurate and complete [id number] .
--- NOTE | 2017-01-21 11:10 | Pathology Report from [facility] ---
ACCESSION # : [id number] PATIENT NAME : Eva Rodriguez ORDERING DR : Liam Mckeon MD CLINICAL HX: Left Pleural Effusion, shortness of breath. POST-OP DX: Same SPECIMEN INFO: Fluid,Pleural,Left - 1300 ml's straw colored, cloudy. CLASS: I CLASS COMMENTS: Few benign mesothelial cells, inflammation, proteinaceous material.CELL BLOCK: Same CLASS LEGEND: CLASS 0 Material inadequate for diagnosis because of (see comment) CLASS I Absence of atypical or abnormal cells CLASS II Atypical Cytology but no evidence of malignancy CLASS III Cytology suggestive of but not conclusive for malignancy CLASS IV Cytology strongly suggestive of malignancy CLASS V Cytology conclusive for malignancy SERVICE DATE: 01/20/2017 REPORT DATE: 01/21/2017 PATHOLOGIST: Svitlana Balderas III, M.D. [facility]TD[facility]
--- NOTE | 2017-01-21 13:45 | Pulmonology Progress Note ---
Pulmonary - PN: Subj Interval history: Brian Whittaker, ANP-BC, GNP-BC, acting as scribe for Dr. Eleno Lombardi Mr. Rodriguez was seen today along with Mika Lewis RN, and a dialysis nurse. There is a 61-year-old black male. He was first seen in pulmonary consultation on 01/17/2017. At that time, our impressions were: 1. Large left pleural effusion. Exudate. Probably related to #2. Cytologies are pending. 2. Large mass in the left upper lung and mediastinum. Thought to be lung cancer. Suspected adrenal gland metastasis 3. Pericardial effusion. Etiology undetermined. Consider malignancy. 2016. Echocardiogram and cardiology consult pending. 4. Chronic renal failure requiring dialysis. 5. See past history. 01/18/2017. Patient appears stable today. Echocardiogram pending cardiology consultation pending. Cytology pending. White blood cell count 17,773 6. Platelets 281,000. H&H 9.4/31.2. Electrolytes are normal. Creatinine 7.20. No positive cultures. Patient does not appear to be in distress. He is lying flat in bed without any apparent distress. 01/19/2017. This patient still has some left sided pleural effusion and he has a huge mass-effect over the left upper lung. I have asked interventional radiologist for another thoracentesis to remove additional fluid and for additional cytology. I canceled that today. I cancel because of patient just lays in bed and is asleep in a hard to arouse. His says this is the way he is at home for the past few months. I am not sure how much workup this patient can take. Cytologies from the first thoracentesis are pending. White count is 17,000 with 83 segs. H&H is 9.0/29.7. Platelets 350,000. Glucose 201. 01/20/17. Patient's pleural fluid cytology is still pending. He is laying flat in bed and appears comfortable. His breathing is stable. The chest x-ray has been done today, so one has been ordered. Pleural fluid from thoracentesis has grown no organisms. White count has risen to 26,500 and at midnight he had a temperature 100.0. Will obtain blood cultures 3 sets 30 minutes apart; sputum for Gram stain, culture, and sensitivity; and start Cleocin 300 mg IV every 8 hours. 01/21/17. The patient's cytology from the thoracentesis done 01/17/17 has now been reported as class I. He would be high risk for complications if we were to proceed with FOB. His pleural effusion is enlarging. We will consult IR for another diagnostic and therapeutic thoracentesis. This fluid should only be sent for cytology. We will ask for sputum for cytology daily 3. Sputum for Gram stain, culture, and sensitivity has been ordered, but thus far has not been collected. Repeat echocardiogram done 01/20/[address] Flynn showed that the pericardial effusion is slightly larger. He does not feel that the patient can tolerate intervention for this at this time. Medications have been reviewed. We made no changes today. Labs been reviewed. No new labs were drawn today. Exam (Progress Note) - Constitutional Vitals: Period Temp Pulse Resp BP Sys/Obando Pulse Ox Last 24 Hr 97.7 F-98.7 F 104-112 16-18 102-124/45-72 94-100 Exam: Chest with mild large airway congestion and decreased breath sounds on the left Heart sounds are distant Abdomen is nontender and nondistended Extremities with nothing to suggest acute deep venous thrombophlebitis Neurologic/psychiatric the patient is awake and alert Plan: Consult interventional radiology for diagnostic and therapeutic thoracentesis. Pleural fluid to be sent for cytology only. Sputum for Gram stain, culture, and sensitivity. Sputum for cytology daily 3. He is being followed by cardiology and nephrology. Results - Labs CBC & BMP: 01/20/17 06:04 01/20/17 06:04
--- NOTE | 2017-01-21 15:46 | Post Interventional Procedure ---
Pre-op diagnosis: large left pleural effusion Post-op diagnosis: same Procedure: u/s guided thoracentesis Contrast: none Flouroscopy: none Radiologist: Liam Mckeon Anesthesia: local Specimens: other (fluid sent for cytology) Estimated blood loss: none Complications: none Condition: stable Description/Findings: 1500 mL serous straw-colored pleural fluid removed via a right posterior approach with ultrasound guidance. Patient tolerated the procedure well and left the procedure area in stable condition. Assessment and Plan - Time spent with patient Time spent with patient: Less than 30 minutes
--- NOTE | 2017-01-21 15:50 | Ultrasound Report ---
Exam: ULTRASOUND-GUIDED THORACENTESIS Clinical history: History of pleural malignancy and large left pleural effusion. Physician: Dr. Mckeon. Procedure: Informed consent was obtained prior to the procedure. A formal timeout was performed. Maximum sterile barrier technique was used. A partially loculated left-sided pleural effusion was identified with ultrasound. The left posterior chest was prepped and draped in sterile fashion. 1% lidocaine was used to anesthetize the skin and subcutaneous tissues. Under sonographic guidance, a 6 English safety centesis needle and catheter were advanced into the effusion using trocar technique. A captured sonographic image demonstrates positioning of the needle within the targeted pleural fluid. The needle was removed. Through the catheter, we obtained a total of 1500 cc of serous pleural fluid. The catheter was removed. A bandage was placed at the puncture site. The patient tolerated the procedure well. Chest radiograph is pending. Impression: 1. Technically successful ultrasound guided left thoracentesis as detailed above. 2. Post procedure chest radiograph is pending. PROCEDURE INTERPRETED AT [facility] DEPARTMENT OF RADIOLOGY Final Report Signed by: Liam Mckeon
--- NOTE | 2017-01-21 15:52 | XRay Report ---
Exam: XR chest post procedure Indication: Status post left thoracentesis Comparison study: 01/20/2017 at 10:54 AM Findings: There is significantly improved aeration of the left lower lobe with partial clearing of the large left pleural effusion status post left thoracentesis. There is no pneumothorax. Opacities within the left upper chest likely represent the known left perihilar mass with postobstructive pneumonia/atelectasis and loculated pleural fluid. Small right pleural effusion is noted. Impression: No change in the known left suprahilar mass and probable postobstructive atelectasis/pneumonia and loculated pleural fluid within the left upper chest. No pneumothorax following left thoracentesis with significantly improved aeration within the left lower lobe/lung base. PROCEDURE INTERPRETED AT [facility] DEPARTMENT OF RADIOLOGY Final Report Signed by: Liam Mckeon
[2017-01-21] MEDS: LEVOFLOXACIN INJ 500 MG in PREMIX 1 EACH IV SCH (16:00)
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
--- NOTE | 2017-01-21 20:08 | Hospitalist Progress Note ---
Assessment and Plan (1) Dyspnea Status: Acute Assessment and plan: Related to pleural effusion and mediastinum mass. Current Visit: Yes Qualifiers: Dyspnea type: shortness of breath Qualified Code(s): R06.02 - Shortness of breath (2) End stage renal disease on dialysis Status: Chronic Current Visit: Yes (3) Pleural effusion, left Status: Acute Assessment and plan: Cytology pending. Likely malignant. Current Visit: Yes (4) Mediastinal mass Status: Acute Current Visit: Yes (5) Pericardial effusion Status: Chronic Assessment and plan: Without tamponade Current Visit: Yes Hospitalist: Subjective Interval history: Patient seen and examined. Chart reviewed. Consult from hematology oncology also reviewed. I discussed the patient's condition, diagnosis with him at length at the bedside. He shows poor insight and understanding. He still wants to be a full code despite his terminal diagnosis. Ironically he agreed to hospice. Exam - Constitutional Vitals: Period Temp Pulse Resp BP Sys/Obando Pulse Ox Last 24 Hr 98.0 F-98.7 F 104-116 14-18 98-129/45-75 94-100 General appearance: mild distress, cachectic - Head Head exam: Present: normal inspection, normocephalic - Respiratory Respiratory exam: Present: decreased breath sounds, prolonged expiratory phase - Cardiovascular Cardiovascular exam: Present: regular rate and rhythm - GI/Abdominal GI/Abdominal exam: Present: normal bowel sounds, soft. Absent: tenderness, rebound - Extremities Exam Extremities exam: Absent: edema - Neurological Exam Neurological exam: Present: alert, oriented X3 - Psychiatric Psychiatric exam: Present: normal affect, normal mood - Skin Skin exam: Present: normal color, warm, dry Results - Labs CBC & BMP: 01/20/17 06:04 01/20/17 06:04 Lab Results: I have reviewed the past 24 hour labs
--- NOTE | 2017-01-21 23:42 | Nephrology Progress Note ---
Nephrology - PN: Subj Interval history: He is alert but remains very weak. By mouth intake is poor but he is had no nausea or vomiting. He denies shortness of breath at rest Exam (PN)-Nephrology - Vital Signs Vital signs: Period Temp Pulse Resp BP Sys/Obando Pulse Ox Last 24 Hr 98 F-98.7 F 104-116 14-20 98-129/45-75 94-100 Exam: ENT: Normal Cardiovascular: Regular rate and rhythm. No murmur rub or gallop Lungs: Clear right. Dullness left base Extremities: No edema - Lab 01/20/17 06:04 01/20/17 06:04 Most recent lab results Calcium 9.6 MG/DL (8.5-10.1) 01/20/17 06:04 Magnesium 3.1 MG/DL (1.8-2.4) H 01/20/17 06:04 Assessment and Plan (1) End stage renal disease on dialysis Status: Chronic Assessment and plan: 61-year-old man admitted with: * Left pleural effusion. Status post thoracentesis. He is symptomatically improved. * Mediastinal mass. Oncology will discuss options with him today * ESRD. Stable during dialysis today * Diabetes mellitus * Cerebrovascular disease * Seizure disorder Current Visit: Yes (2) Pericardial friction rub Status: Acute Current Visit: Yes (3) Pleural effusion, left Status: Acute Current Visit: Yes (4) Mediastinal mass Status: Acute Current Visit: Yes
[2017-01-22] MEDS: CLINDAMYCIN INJ 300 MG in PREMIX 1 EACH IV SCH ×4 (02:26→20:48)
--- NOTE | 2017-01-22 07:18 | XRay Report ---
Exam: XR chest 1V Date: 01/22/2017 4:00 AM Indication: Pneumothorax Comparison: 01/21/2017 Technical: AP portable Findings: A large area of atelectatic change mass consolidation involves the left upper apical chest. Cardiomegaly is present. Low volume effusion present. No obvious pneumothorax present. Multiple old right rib fractures present.. Impression: 1. No obvious pneumothorax with a large left hilar suprahilar mass post obstructive pneumonitis changes. Tiny left effusion noted 2. Cardiomegaly 3. Old right rib fractures PROCEDURE INTERPRETED AT [facility] DEPARTMENT OF RADIOLOGY Final Report Signed by: Dr. Eleno Casarez
--- NOTE | 2017-01-22 07:37 | Cardiology Progress Note ---
Assessment and Plan (1) Pericardial effusion Status: Chronic Current Visit: Yes (2) End stage renal disease on dialysis Status: Chronic Current Visit: Yes (3) Hepatitis B Status: Chronic Current Visit: Yes Qualifiers: Viral hepatitis chronicity: chronic (4) Hypertension Status: Chronic Current Visit: Yes (5) Chest mass Status: Acute Assessment and plan: Cytology is negative. Current Visit: Yes Cardiology - PN: Subj Interval history: I have discussed in detail with the patient. I am not sure he grasped his current condition. Also discussed with Dr. Mays and Dr. Orellana. The patient 's pericardial effusion appears to be chronic with acute worsening. His prognosis is very poor. I do not think it would add substantial quality or quantity to his life to consider pericardial drain. I discussed with him about discontinuation of dialysis and hospice he does not understand this. I have nothing further to add at this time and I will sign off. His thoracic cytology was negative. Exam (Progress Note) - Constitutional Vitals: Period Temp Pulse Resp BP Sys/Obando Pulse Ox Last 24 Hr 97.8 F-98.6 F 105-116 14-20 98-129/46-75 94-100 General appearance: under weight - Respiratory Respiratory exam: Present: other (No breath sounds on the left) - Cardiovascular Cardiovascular exam: Present: regular rate and rhythm (Tones are amazingly crisp his murmur of mitral and tricuspid regurgitation) - GI/Abdominal GI/Abdominal exam: Present: normal bowel sounds Result/EKG - Labs CBC & BMP: 01/20/17 06:04 01/20/17 06:04 Labs: Laboratory Results - last 24 hr 01/21/17 01/21/17 01/22/17 08:22 20:06 07:26 POC Glucose 137 H 197 H 151 H
[2017-01-22] MEDS: MAGNESIUM CHLORIDE 64 MG TABLET PO SCH (09:31)
[2017-01-22] MEDS: PHENYTOIN ER 100 MG CAPSULE PO SCH ×2 (09:31→20:49)
[2017-01-22] MEDS: PANTOPRAZOLE 40 MG TABLET PO SCH (09:31)
[2017-01-22] MEDS: SEVELAMER CARBONATE 800 MG TABLET PO SCH ×3 (09:31→17:28)
[2017-01-22] MEDS: CALCIUM ACETATE 667 MG CAPSULE PO SCH ×3 (09:31→16:40)
[2017-01-22] MEDS: ASPIRIN EC 81 MG TABLET PO SCH (09:31)
[2017-01-22] MEDS: SIMVASTATIN 10 MG TABLET PO SCH (09:31)
--- NOTE | 2017-01-22 11:07 | Pulmonology Progress Note ---
Pulmonary - PN: Subj Interval history: Brian Whittaker, ANP-BC, GNP-BC, acting as scribe for Dr. Eleno Lombardi Mr. Rodriguez was seen today along with Ema Norris RN, and four male family members/friends. There is a 61-year-old black male. He was first seen in pulmonary consultation on 01/17/2017. At that time, our impressions were: 1. Large left pleural effusion. Exudate. Probably related to #2. Cytologies are pending. 2. Large mass in the left upper lung and mediastinum. Thought to be lung cancer. Suspected adrenal gland metastasis 3. Pericardial effusion. Etiology undetermined. Consider malignancy. 2016. Echocardiogram and cardiology consult pending. 4. Chronic renal failure requiring dialysis. 5. See past history. 01/18/2017. Patient appears stable today. Echocardiogram pending cardiology consultation pending. Cytology pending. White blood cell count 17,773 6. Platelets 281,000. H&H 9.4/31.2. Electrolytes are normal. Creatinine 7.20. No positive cultures. Patient does not appear to be in distress. He is lying flat in bed without any apparent distress. 01/19/2017. This patient still has some left sided pleural effusion and he has a huge mass-effect over the left upper lung. I have asked interventional radiologist for another thoracentesis to remove additional fluid and for additional cytology. I canceled that today. I cancel because of patient just lays in bed and is asleep in a hard to arouse. His says this is the way he is at home for the past few months. I am not sure how much workup this patient can take. Cytologies from the first thoracentesis are pending. White count is 17,000 with 83 segs. H&H is 9.0/29.7. Platelets 350,000. Glucose 201. 01/20/17. Patient's pleural fluid cytology is still pending. He is laying flat in bed and appears comfortable. His breathing is stable. The chest x-ray has been done today, so one has been ordered. Pleural fluid from thoracentesis has grown no organisms. White count has risen to 26,500 and at midnight he had a temperature 100.0. Will obtain blood cultures 3 sets 30 minutes apart; sputum for Gram stain, culture, and sensitivity; and start Cleocin 300 mg IV every 8 hours. 01/21/17. The patient's cytology from the thoracentesis done 01/17/17 has now been reported as class I. He would be high risk for complications if we were to proceed with FOB. His pleural effusion is enlarging. We will consult IR for another diagnostic and therapeutic thoracentesis. This fluid should only be sent for cytology. We will ask for sputum for cytology daily 3. Sputum for Gram stain, culture, and sensitivity has been ordered, but thus far has not been collected. Repeat echocardiogram done 01/20/[address] Flynn showed that the pericardial effusion is slightly larger. He does not feel that the patient can tolerate intervention for this at this time. 01/22/17. The patient underwent thoracentesis yesterday by Dr. Mckeon. He was able to removed 1500mL of serous straw-colored pleural fluid. We asked that his be sent for cytology only. That report is, of course, pending. His CXR shows better aeration. The left hilar/suprahilar mass is again noted. Dr. Flynn's note has bee reviewed. He does not feel that a pericardial drain would benefit this patient at this time. He has been seen in oncology consultation by Dr. Mays. His note has been reviewed. We reiterated what he stated to the family present today. We told them we do not feel he could tolerate chemotherapy and he was not a surgical candidate. They verbalized understanding. He does, however , continue to be dialyzed which would take away the option of hospice. From a pulmonary standpoint, we will follow-up his cytology when it becomes available. Of note, he remains a FULL CODE at this time. Medications have been reviewed. We made no changes today. Labs been reviewed. No new labs were drawn today. Exam (Progress Note) - Constitutional Vitals: Period Temp Pulse Resp BP Sys/Obando Pulse Ox Last 24 Hr 97.8 F-98.6 F 107-116 14-20 98-129/46-75 95-100 Exam: Chest with mild large airway congestion and decreased breath sounds on the left Heart sounds are distant Abdomen is nontender and nondistended Extremities with nothing to suggest acute deep venous thrombophlebitis Neurologic/psychiatric the patient is awake and alert, but slow to answer questions Plan: Continue present pulmonary treatment. Follow-up pleural fluid cytology when available. Results - Labs CBC & BMP: 01/20/17 06:04 01/20/17 06:04
--- NOTE | 2017-01-22 11:11 | Pathology Report from [facility] ---
ACCESSION # : [id number] PATIENT NAME : Eva Rodriguez ORDERING DR : David Orellana MD CLINICAL HX: Left Thoracentesis POST-OP DX: Same SPECIMEN INFO: Fluid,Thoracentesis,Left - 1500 ml's yani, cloudy. CLASS: I CLASS COMMENTS: Fibrin with acute and chronic inflammatory cells.CELL BLOCK: Same CLASS LEGEND: CLASS 0 Material inadequate for diagnosis because of (see comment) CLASS I Absence of atypical or abnormal cells CLASS II Atypical Cytology but no evidence of malignancy CLASS III Cytology suggestive of but not conclusive for malignancy CLASS IV Cytology strongly suggestive of malignancy CLASS V Cytology conclusive for malignancy SERVICE DATE: 01/21/2017 REPORT DATE: 01/22/2017 PATHOLOGIST: Svitlana Balderas III, M.D. MTDD
--- NOTE | 2017-01-22 12:22 | Discharge Summary ---
Hospital Course - Hospital Course Hospital Course: Mr. Rodriguez is a 61 year old male with end-stage renal disease on hemodialysis who was found to have a very large left chest mass on CT imaging. There was also pleural effusion and a pericardial effusion. The pleural effusion has been drained cytology is negative. The tumor in his chest is obviously malignant given its size and features. Mr. Rodriguez states he has also lost a significant amount of weight over the last few months and become quite fatigued. He has a very poor functional status and is not a good candidate for any type of intervention. I had a lengthy discussion with him today. He was not very conversant but did say that he understood what I said. I explained to him that there is very little that we can do to meaningfully alter his outcome. He does not appear to be a candidate that would tolerate chemotherapy. This tumor is not resectable nor is he a candidate for surgery. Given that he is on hemodialysis, this will complicate comfort measures as he would have to decide to not do hemodialysis to be placed on hospice. I did explain in that he does not have to continue on with dialysis given his terminal diagnosis of advanced cancer if he does not want to. My recommendation at this time would be to provide comfort measures only, with or without dialysis. That decision is totally up to the patient and his kidney doctors. Had a lengthy conversation with the patient's daughter regarding his diagnosis and prognosis. She verbalizes her understanding. This patient lives with his elderly mother but has multiple family members that are in the immediate vicinity. He is taken to dialysis 3 times per week from [facility] by family members. I've consult case management to assist in an introduction with hospice. He may continue dialysis as his terminal diagnosis is cancer not ESRD. I also discussed this with Dr. Burnette - Time spent with patient Time with patient DS: Greater than 30 minutes Diagnosis - Discharge Diagnosis (1) Dyspnea Status: Acute (2) End stage renal disease on dialysis Status: Chronic (3) Pleural effusion, left Status: Acute (4) Mediastinal mass Status: Acute (5) Pericardial effusion Status: Acute Specialty Discharge - Follow Up or Referrals Follow up with: Ray Burnette MD [Physician] - Discharge Plan - Discharge Data Disposition: Hospice - Home Condition at Discharge: Guarded Discharge Diet: advance to your usual diet Activity: resume usual activities as tolerated Hygiene: no restrictions - Discharge Medications New Magnesium Chloride [Slow Mag] 64 mg PO DAILY tablet Calcium Acetate [Phoslo] 667 mg PO TID W/MEALS capsule Docusate Sodium Cap [Colace Cap] 100 mg PO BID PRN #0 capsule PRN Reason: Constipation Continue Phenytoin ER Cap [Dilantin Cap] 200 mg PO BID hydrALAZINE TAB [Apresoline Tab] 50 mg PO TID Simvastatin 10 mg PO DAILY cloNIDine TAB [Catapres Tab] 0.1 mg PO BID Amlodipine Besylate 10 mg PO DAILY Nifedipine [Nifedipine ER] 90 mg PO DAILY Omeprazole 40 mg PO DAILY Carvedilol [Coreg] 6.25 mg PO BID Sevelamer Carbonate Tab [Renvela Tab] 1,600 mg PO TID - Follow Up or Referral Follow Up: Ray Burnette MD [Physician] - - Forms/Instructions Exam - Constitutional Vitals: Period Temp Pulse Resp BP Sys/Obando Pulse Ox Last 24 Hr 97.8 F-98.6 F 107-116 14-20 98-129/46-75 95-100 General appearance: mild distress, cachectic Discharge Results Procedures and tests throughout hospitalization: Pending Orders 01/20/17 11:08 Sputum Culture and Gram Stain Routine 01/20/17 14:01 Blood Culture Routine 01/21/17 12:22 Cytology Request Routine Labs on day of discharge: Labs from last 24 hours 01/22/17 01/22/17 01/21/17 11:29 07:26 20:06 POC Glucose 161 H 151 H 197 H Preliminary micro results at discharge 01/20/17 14:01 Blood Culture - Preliminary Blood No growth at 1 day 01/20/17 13:05 Blood Culture - Preliminary Blood No growth at 1 day 01/20/17 11:52 Blood Culture - Preliminary Blood No growth at 1 day - Imaging and Cardiology Procedure: Chest x-ray: report reviewed by me DS: Provider Date of admission: 01/17/17 14:49 Primary care physician: . No PCP Attending physician on admission: Valentina Newby MD Consults: 01/17/17 16:13 Consult to Pharmacy [CONS] Routine Reason for Pharmacy Consult: Adjust Meds Renal Funct 01/17/17 16:28 Consult to Physician [CONS] Routine Comment: Consulting Provider: Consult to Specialist Group: Cardiology When should Consulting Provider be notified: Now Person Notified: answer service Date Notified: 01/17/17 Time Notified: 16:43 01/17/17 17:21 Consult to Dietitian [CONS] Routine Reason for Dietitian: Dietary Consult 01/22/17 07:25 Consult to Case Mgmt/Social Srvs [CONS] Routine Reason for Case Mgmt/Social Srvs: Hospice Referral Discharging clinician: David Orellana MD Expected date of discharge: 01/23/17
--- NOTE | 2017-01-22 12:27 | Hospitalist Progress Note ---
Assessment and Plan (1) Dyspnea Status: Acute Assessment and plan: Related to pleural effusion and mediastinum mass. Current Visit: Yes Qualifiers: Dyspnea type: shortness of breath Qualified Code(s): R06.02 - Shortness of breath (2) End stage renal disease on dialysis Status: Chronic Current Visit: Yes (3) Pleural effusion, left Status: Acute Assessment and plan: Cytology pending. Likely malignant. Current Visit: Yes (4) Mediastinal mass Status: Acute Current Visit: Yes (5) Pericardial effusion Status: Acute Assessment and plan: Without tamponade Current Visit: Yes Hospitalist: Subjective Interval history: Patient seen and examined. Family at the bedside. At lengthy conversation with the patient's daughter regarding his diagnosis and prognosis. She verbalizes her understanding. We'll consult hospice today. Exam - Constitutional Vitals: Period Temp Pulse Resp BP Sys/Obando Pulse Ox Last 24 Hr 97.8 F-98.6 F 107-116 14-20 98-129/46-75 95-100 General appearance: no acute distress, cachectic - Respiratory Respiratory exam: Present: decreased breath sounds - Cardiovascular Cardiovascular exam: Present: regular rate and rhythm - GI/Abdominal GI/Abdominal exam: Present: normal bowel sounds, soft. Absent: tenderness, rebound - Extremities Exam Extremities exam: Absent: edema - Neurological Exam Neurological exam: Present: alert Results - Labs CBC & BMP: 01/20/17 06:04 01/20/17 06:04 Lab Results: I have reviewed the past 24 hour labs Specialty Discharge - Follow Up or Referrals Follow up with: Ray Burnette MD [Physician] -
--- NOTE | 2017-01-22 17:37 | Nephrology Progress Note ---
Nephrology - PN: Subj Interval history: He remains quite weak. He responds very little verbally. Exam (PN)-Nephrology - Vital Signs Vital signs: Period Temp Pulse Resp BP Sys/Obando Pulse Ox Last 24 Hr 97.5 F-98.6 F 107-117 18-20 106-122/46-69 95-98 Exam: ENT: Normal Cardiovascular: Regular rate and rhythm. No murmur rub or gallop Lungs: Clear right. Dullness left base Extremities: No edema - Lab 01/20/17 06:04 01/20/17 06:04 Most recent lab results Calcium 9.6 MG/DL (8.5-10.1) 01/20/17 06:04 Magnesium 3.1 MG/DL (1.8-2.4) H 01/20/17 06:04 Assessment and Plan (1) End stage renal disease on dialysis Status: Chronic Assessment and plan: 61-year-old man admitted with: * Left pleural effusion. Status post thoracentesis. * Mediastinal mass. Presumed malignancy. * ESRD. * Diabetes mellitus * Cerebrovascular disease * Seizure disorder I attempted to discuss continuation of dialysis with him. Family is not present currently. I agree with hospice care. He is qualified for hospice for malignancy and may continue dialysis if he desires. I attempted to discuss this with his daughter but was unable to reach her. If Mr. Rodriguez or his family desire to stop dialysis, I am not opposed to this Current Visit: Yes (2) Pericardial friction rub Status: Acute Current Visit: Yes (3) Pleural effusion, left Status: Acute Current Visit: Yes (4) Mediastinal mass Status: Acute Current Visit: Yes Specialty Discharge - Follow Up or Referrals Follow up with: Ray Burnette MD [Physician] -
[2017-01-23] MEDS: CLINDAMYCIN INJ 300 MG in PREMIX 1 EACH IV SCH ×3 (02:57→14:50)
[2017-01-23] MEDS: SEVELAMER CARBONATE 800 MG TABLET PO SCH ×2 (09:30→13:53)
[2017-01-23] MEDS: MAGNESIUM CHLORIDE 64 MG TABLET PO SCH (09:30)
[2017-01-23] MEDS: PHENYTOIN ER 100 MG CAPSULE PO SCH (09:30)
[2017-01-23] MEDS: CALCIUM ACETATE 667 MG CAPSULE PO SCH ×2 (09:30→13:53)
[2017-01-23] MEDS: PANTOPRAZOLE 40 MG TABLET PO SCH (09:30)
[2017-01-23] MEDS: SIMVASTATIN 10 MG TABLET PO SCH (09:30)
[2017-01-23] MEDS: ASPIRIN EC 81 MG TABLET PO SCH (09:30)
--- NOTE | 2017-01-23 10:55 | Pulmonology Progress Note ---
Pulmonary - PN: Subj Interval history: Brian Whittaker, ANP-BC, GNP-BC, acting as scribe for Dr. Eleno Lombardi Mr. Rodriguez was seen today along with Ema Norris RN, and four male family members/friends. There is a 61-year-old black male. He was first seen in pulmonary consultation on 01/17/2017. At that time, our impressions were: 1. Large left pleural effusion. Exudate. Probably related to #2. Cytologies are pending. 2. Large mass in the left upper lung and mediastinum. Thought to be lung cancer. Suspected adrenal gland metastasis 3. Pericardial effusion. Etiology undetermined. Consider malignancy. 2016. Echocardiogram and cardiology consult pending. 4. Chronic renal failure requiring dialysis. 5. See past history. 01/18/2017. Patient appears stable today. Echocardiogram pending cardiology consultation pending. Cytology pending. White blood cell count 17,773 6. Platelets 281,000. H&H 9.4/31.2. Electrolytes are normal. Creatinine 7.20. No positive cultures. Patient does not appear to be in distress. He is lying flat in bed without any apparent distress. 01/19/2017. This patient still has some left sided pleural effusion and he has a huge mass-effect over the left upper lung. I have asked interventional radiologist for another thoracentesis to remove additional fluid and for additional cytology. I canceled that today. I cancel because of patient just lays in bed and is asleep in a hard to arouse. His says this is the way he is at home for the past few months. I am not sure how much workup this patient can take. Cytologies from the first thoracentesis are pending. White count is 17,000 with 83 segs. H&H is 9.0/29.7. Platelets 350,000. Glucose 201. 01/20/17. Patient's pleural fluid cytology is still pending. He is laying flat in bed and appears comfortable. His breathing is stable. The chest x-ray has been done today, so one has been ordered. Pleural fluid from thoracentesis has grown no organisms. White count has risen to 26,500 and at midnight he had a temperature 100.0. Will obtain blood cultures 3 sets 30 minutes apart; sputum for Gram stain, culture, and sensitivity; and start Cleocin 300 mg IV every 8 hours. 01/21/17. The patient's cytology from the thoracentesis done 01/17/17 has now been reported as class I. He would be high risk for complications if we were to proceed with FOB. His pleural effusion is enlarging. We will consult IR for another diagnostic and therapeutic thoracentesis. This fluid should only be sent for cytology. We will ask for sputum for cytology daily 3. Sputum for Gram stain, culture, and sensitivity has been ordered, but thus far has not been collected. Repeat echocardiogram done 01/20/[address] Flynn showed that the pericardial effusion is slightly larger. He does not feel that the patient can tolerate intervention for this at this time. 01/22/17. The patient underwent thoracentesis yesterday by Dr. Mckeon. He was able to removed 1500mL of serous straw-colored pleural fluid. We asked that his be sent for cytology only. That report is, of course, pending. His CXR shows better aeration. The left hilar/suprahilar mass is again noted. Dr. Flynn's note has bee reviewed. He does not feel that a pericardial drain would benefit this patient at this time. He has been seen in oncology consultation by Dr. Mays. His note has been reviewed. We reiterated what he stated to the family present today. We told them we do not feel he could tolerate chemotherapy and he was not a surgical candidate. They verbalized understanding. He does, however , continue to be dialyzed which would take away the option of hospice. From a pulmonary standpoint, we will follow-up his cytology when it becomes available. Of note, he remains a FULL CODE at this time. 01/23/17. Your plans for discharge home to hospice are noted. We will sign off. Please reconsult PRN. Medications have been reviewed. We made no changes today. Labs been reviewed. No new labs were drawn today. Repeat cytology from thoracentesis done 01/21/17 was class I. Exam (Progress Note) - Constitutional Vitals: Period Temp Pulse Resp BP Sys/Obando Pulse Ox Last 24 Hr 97.5 F-98.7 F 109-120 18-20 107-137/64-73 94-98 Results - Labs CBC & BMP: 01/20/17 06:04 01/20/17 06:04 Specialty Discharge - Follow Up or Referrals Follow up with: Ray Burnette MD [Physician] -
[2017-01-23] MEDS ORDERED: ALBUMIN 25% 25 GM in PREMIX 1 EACH IV ONE (12:30)
--- NOTE | 2017-01-23 13:36 | Nephrology Progress Note ---
Nephrology - PN: Subj Interval history: He is seen during dialysis. Blood pressure is borderline low. He is poorly responsive. Exam (PN)-Nephrology - Vital Signs Vital signs: Period Temp Pulse Resp BP Sys/Obando Pulse Ox Last 24 Hr 97.5 F-99.1 F 114-120 18-20 112-137/67-74 94-99 Exam: Gen.: Poorly responsive Cardiovascular: Regular rate and rhythm. No murmur rub or gallop Lungs: Clear Extremities: No edema - Lab 01/20/17 06:04 01/20/17 06:04 Most recent lab results Calcium 9.6 MG/DL (8.5-10.1) 01/20/17 06:04 Magnesium 3.1 MG/DL (1.8-2.4) H 01/20/17 06:04 Assessment and Plan (1) End stage renal disease on dialysis Status: Chronic Assessment and plan: 61-year-old man admitted with: * Left pleural effusion. Status post thoracentesis. * Mediastinal mass. Presumed malignancy. * ESRD. * Diabetes mellitus * Cerebrovascular disease * Seizure disorder His daughter indicated she wanted to continue dialysis today. Plans for hospice care noted. I will attempt to discuss future plans for dialysis with the patient's daughter again today. Prognosis is extremely poor Current Visit: Yes (2) Pericardial friction rub Status: Acute Current Visit: Yes (3) Pleural effusion, left Status: Acute Current Visit: Yes (4) Mediastinal mass Status: Acute Current Visit: Yes Specialty Discharge - Follow Up or Referrals Follow up with: Ray Burnette MD [Physician] -
[2017-01-23 16:06] VITALS: BP 121/69
== END 2017-01-23 16:14 | disposition hospice, home (50) | DRG 180 ==
LOC: EDBD → EDUNIT# → N.ED 10:54 → SUATTDRO 14:49 → N.EDINP 14:49 → N.5E 15:22
PROVIDERS: ADMIT Family Medicine; ATTEND Family Medicine
PROC: IRTHORA (2017-01-21 13:47)